=== PATIENT | male | born 1975 ===

== ENCOUNTER 2018-02-02 09:53 | Emergency (ER) | payer SELFPAY ==
[2018-02-02 10:04] VITALS: BP 160/98
--- NOTE | 2018-02-02 12:25 | UC ---
Nadir Maria Angela, scribed for Rahul Adam MD on 02/02/18 at 1019 . Complaint Male HPI - HPI Summary HPI Summary: This pt is a 42 y/o male presenting to [facility] c/o bilateral lower abdomen and pelvic pain x3 days. 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 Pt notes is pain is intermittent and is more frequent especially when working. Currently he rates his pain 0 out of 10 in severity. He additionally notes urinary frequency. Denies fever, chills, diarrhea, constipation, nausea, vomiting. - History of Current Complaint Chief Complaint: UCGU Stated Complaint: ABD PAIN,FREQUENT URINATION Time Seen by Provider: 02/02/18 09:59 Hx Obtained From: Patient Onset/Duration: Lasting Days, Still Present Timing: Lasting Days Severity Currently: None Pain Intensity: 0 Pain Scale Used: 0-10 Numeric Location: Other - lower abd pain Aggravating Factor(s): Other - heavy lifting Alleviating Factor(s): Nothing Associated Signs And Symptoms: Negative: Back Pain, Fever, Constipation, Nausea - Allergies/Home Medications Allergies/Adverse Reactions: Allergies Allergy/AdvReac Type Severity Reaction Status Date / Time bee venom protein (honey bee) Allergy anaph Verified 02/02/18 10:05 lactose Allergy hive Verified 02/02/18 10:05 Home Medications: Home Medications NK [No Home Medications Reported] 02/02/18 [History Confirmed 02/02/18] PMH/Surg Hx/FS Hx/Imm Hx Other Endocrine History: DENIES: diabetes Other Cardiovascular History: DENIES: HTN - Surgical History Surgical History: None - Family History Known Family History: Negative: Cardiac Disease, Hypertension - Social History Alcohol Use: Rare Substance Use Type: Marijuana Smoking Status (MU): Never Smoked Tobacco Review of Systems Constitutional: Negative Skin: Negative Eyes: Negative ENT: Negative Respiratory: Negative Cardiovascular: Negative Gastrointestinal: Abdominal Pain - lower, Other - NEG: diarrhea, constipation Genitourinary: Frequency Motor: Negative Neurovascular: Negative Musculoskeletal: Negative Neurological: Negative Psychological: Negative Is Patient Immunocompromised?: No All Other Systems Reviewed And Are Negative: Yes Physical Exam - Summary Physical Exam Summary: VITAL SIGNS: Reviewed. GENERAL: Patient is a well-developed and nourished male who is lying comfortable in the stretcher. Patient is not in any acute respiratory distress. HEAD AND FACE: Normocephalic EYES: PERRLA, EOMI x 2. EARS: Hearing grossly intact. MOUTH: Oropharynx within normal limits. NECK: Supple, trachea is midline, no adenopathy, no JVD, no carotid bruit. CHEST: Symmetric, no tenderness at palpation LUNGS: Clear to auscultation bilaterally. No wheezing or crackles. CVS: Regular rate and rhythm, S1 and S2 present, no murmurs or gallops appreciated. ABDOMEN: Soft. Tenderness to palpation on lower abdomen. No rebound or guarding. Bowel sounds are normal. No abdominal abnormal pulsations. EXTREMITIES: Full ROM in all major joints, no edema, no cyanosis or clubbing. NEURO: Alert and oriented x 3. No acute neurological deficits. Speech is normal and follows commands. SKIN: Dry and warm Triage Information Reviewed: Yes Vital Signs: Initial Vital Signs Temp 98.5 F 02/02/18 09:58 Pulse 86 02/02/18 09:58 Resp 16 02/02/18 09:58 BP 160/98 02/02/18 09:58 Pulse Ox 100 02/02/18 09:58 Vital Signs Reviewed: Yes Complaint Male Course/Dx - Course Course Of Treatment: This pt is a 42 y/o male presenting to [facility] c/o bilateral lower abdomen and pelvic pain x3 days. 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 Pt notes is pain is intermittent and is more frequent especially when working. Currently he rates his pain 0 out of 10 in severity. He additionally notes urinary frequency. Denies fever, chills, diarrhea, constipation, nausea, vomiting. Urinalysis is negative for UTI. Pt reports his pain is exacerbated with heavy lifting and he does not have any hernias. I believe his pain is related to musculoskeletal pain due to the heavy lifting. However, pt was advised to follow up with his PCP or go to Emergency Department as he would benefit from lab work and a CT. He declines any further work up at this time and declines to go to the ER. He states he will take Ibuprofen for the pain and if his pain does not improve he will go to the emergency department. Pt was instructed to return to the urgent care or go to ER immediately if any of the symptoms return or worsens. All questions were answered to patient satisfaction. There were no further complaints or concerns. Pt will be discharged to home with follow up from PCP. Pt is hemodynamically stable, alert and oriented x3. The patient was found to have increased blood pressure in UC. The patient will follow up with PCP for better control of BP. - Differential Dx/Diagnosis Provider Diagnoses: Abdominal pain Discharge - Sign-Out/Discharge Documenting (check all that apply): Discharge - discharge to home - Discharge Plan Condition: Stable Disposition: HOME Patient Education Materials: Abdominal Pain (ED) Referrals: [facility] [facility] [Outside] No Primary Care Phys,NOPCP [Primary Care Provider] - Additional Instructions: FOLLOW UP WITH YOUR PRIMARY CARE PROVIDER WITHIN ONE WEEK FOR HIGH BLOOD PRESSURE NOTED TODAY. RETURN TO URGENT CARE OR THE ED FOR ANY WORSENING OR NEW SYMPTOMS. The documentation as recorded by the Nadir holliday Angela accurately reflects the service I personally performed and the decisions made by , Rahul Adam MD.
== END 2018-02-02 10:35 | disposition home or self-care (01) ==
LOC: UCEAST 09:53
DX: R10.30 Lower abdominal pain, unspecified (principal); R35.0 Frequency of micturition
CPT/HCPCS: 81003; 99201; G0463